=== PATIENT | male | born 2000 | race Caucasian/White ===

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

== ENCOUNTER → 2020-09-24 | Outpatient (CLI) | payer OTHER ==
[~2020-09-24] MED LIST changes: +SEPTDS PO
== END | disposition home or self-care (01) ==
LOC: COVID19 15:28
PROVIDERS: ATTEND Internal Medicine
DX: Z20.822 Contact with and (suspected) exposure to COVID-19 (principal)

== ENCOUNTER 2021-09-14 22:53 | Emergency (ER) | payer SELFPAY ==
[~2021-09-14] VITALS: Ht 172.7 cm; Wt 67.6 kg
== END 2021-09-15 00:45 | disposition home or self-care (01) ==
LOC: ED 22:53
DX: S61.212A Laceration without foreign body of right middle finger without damage to nail, initial encounter (principal); W26.8XXA Contact with other sharp object(s), not elsewhere classified, initial encounter; Y93.89 Activity, other specified; Y92.89 Other specified places as the place of occurrence of the external cause; Y99.8 Other external cause status; Z88.1 Allergy status to other antibiotic agents; Z88.8 Allergy status to other drugs, medicaments and biological substances

== ENCOUNTER 2022-07-06 22:45 | Emergency (ER) | payer SELFPAY ==
[~2022-07-06] VITALS: Ht 172.7 cm; Wt 59.0 kg
== END 2022-07-06 23:30 | disposition left against medical advice (07) ==
LOC: ED 22:45
DX: M54.9 Dorsalgia, unspecified (principal); Z53.21 Procedure and treatment not carried out due to patient leaving prior to being seen by health care provider

== ENCOUNTER 2024-01-21 15:21 | Emergency (ER) | payer SELFPAY ==
[~2024-01-21] VITALS: Ht 172.7 cm; Wt 56.7 kg
== END 2024-01-21 15:59 | disposition home or self-care (01) ==
LOC: ED 15:21
DX: M25.531 Pain in right wrist (principal); J45.909 Unspecified asthma, uncomplicated; Z88.1 Allergy status to other antibiotic agents; Z88.8 Allergy status to other drugs, medicaments and biological substances; Z87.891 Personal history of nicotine dependence

== ENCOUNTER 2024-02-21 07:38 | Emergency (ER) | payer SELFPAY ==
[~2024-02-21] VITALS: Ht 172.7 cm; Wt 52.2 kg
[2024-02-21] MEDS ORDERED: PREDNISONE50 MG PO (08:52)
== END 2024-02-21 09:45 | disposition home or self-care (01) ==
LOC: ED 07:38
DX: B34.9 Viral infection, unspecified (principal); Z20.822 Contact with and (suspected) exposure to COVID-19; R11.2 Nausea with vomiting, unspecified; R19.7 Diarrhea, unspecified; J02.9 Acute pharyngitis, unspecified; J45.909 Unspecified asthma, uncomplicated; Z88.1 Allergy status to other antibiotic agents; Z88.8 Allergy status to other drugs, medicaments and biological substances